=== PATIENT | male | born 2000 | race Two or more races ===

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

== ENCOUNTER 2022-10-31 19:09 | Emergency (ER) | payer MEDICAID, OTHER ==
[~2022-10-31] VITALS: Ht 175.3 cm; Wt 90.9 kg
[2022-10-31] MEDS ORDERED: PERTUSS(ACELL),DIPH,TET VAC/PF 0.5 ML SYRINGE IM. ONE (20:30)
[2022-10-31] MEDS ORDERED: LIDOCAINE 1% 10 ML VIAL PERC ONE (21:30)
[2022-10-31] MEDS ORDERED: CEPH-558 PO (22:59)
[2022-10-31] MEDS ORDERED: IBUP-1492 PO (23:00)
[2022-10-31] MEDS ORDERED: NEOMYCIN/BACITRACIN/POLYMYXIN B OINTMENT PACKET TP ONE (23:00)
[2022-10-31 23:10] VITALS: BP 119/69
== END 2022-10-31 23:41 | disposition home or self-care (01) ==
LOC: EMS 19:17
DX: S61.411A Laceration without foreign body of right hand, initial encounter (principal); F12.90 Cannabis use, unspecified, uncomplicated; M79.641 Pain in right hand; X58.XXXA Exposure to other specified factors, initial encounter; Y93.89 Activity, other specified; Y92.89 Other specified places as the place of occurrence of the external cause; Y99.8 Other external cause status
CPT/HCPCS: 99283; 73130; 90715; 90471; 12002; J3490